=== PATIENT | male | born 1985 | race Caucasian/White ===

== ENCOUNTER 2017-05-29 14:10 | Emergency (ER) | payer MEDICAID ==
[~2017-05-29] VITALS: Ht 177.8 cm; Wt 65.8 kg
--- NOTE | 2017-05-29 14:10 | NUR ---
BIBRA FROM HOME FOR POSSIBLE ALCOHOL WIDTHRAWAL, LAST ALCOHOL WAS 12HRS AGO. PT APPEARS ANXIOUS. APPEARS IN NO APPARENT DISTRESS WITH VSS
[2017-05-29] MEDS ORDERED: LORAZEPAM INJ 2 MG/ML VIAL IVP ONE (14:30)
[2017-05-29] MEDS ORDERED: ONDANSETRON HCL/PF 4 MG/2 ML VIAL IVP ONE (14:30)
[2017-05-29] MEDS ORDERED: MISCELLANEOUS MED 1 EA EA XX ONE (14:30)
[2017-05-29] MEDS ORDERED: PYRIDOXINE HCL INJ 100 MG/ML VIAL IV ONE (14:30)
[2017-05-29] MEDS ORDERED: Thiamine 100 MG in IV D5W 50 ML IV SCH (14:30)
[2017-05-29] MEDS ORDERED: IV NS 0.9% 1,000 ML BAG IV ONE (14:30)
[2017-05-29] MEDS ORDERED: CYANOCOBALAMIN 1,000 MCG/ML VIAL IM ONE (14:30)
[2017-05-29 14:38] LABS: BASOPHILS # (AUTO) 0.3 /CMM (0.0-0.2); EOSINOPHILS % (AUTO) 0.1 % (0.0-6.0); HEMATOCRIT 48 % (39-51); HEMOGLOBIN 16.2 g/dL (13.5-17.5); LYMPHOCYTES # (AUTO) 2.5 /CMM (0.8-4.8); LYMPHOCYTES % (AUTO) 16.9 % (20.0-44.0); MEAN CORPUSCULAR HEMOGLOBIN 32 PG (26.0-33.0); MEAN CORPUSCULAR HGB CONC 34 g/dl (31.0-36.0); MEAN CORPUSCULAR VOLUME 96 fL (80-96); NEUTROPHILS # (AUTO) 11.2 /CMM (1.8-8.9); PLATELET COUNT (AUTO) 361 /CMM (150-450); RDW COEFFICIENT OF VARIATION 13.8 (11.5-15.0); RED BLOOD CELL COUNT(AUTO) 5.05 MIL/uL (4.5-6.0)
[2017-05-29] MEDS ORDERED: ONDANSETRON HCL/PF 4 MG/2 ML VIAL ONE (14:45)
[2017-05-29] MEDS ORDERED: LORAZEPAM INJ 2 MG/ML VIAL ONE (14:45)
[2017-05-29 14:47] LABS: CREATININE 1.1 mg/dL (0.6-1.3); POTASSIUM 3.2 mmol/L (3.5-5.1)
[2017-05-29 14:53] LABS: ALBUMIN 4.5 g/dL (3.4-5.0); BILIRUBIN,DIRECT 0.2 mg/dL (0.0-0.2); BILIRUBIN,TOTAL 0.7 mg/dL (0.2-1.0); SALICYLATE 4.8 mg/dL (2.8-20.0); TOTAL PROTEIN, SERUM 8.7 g/dL (6.4-8.2)
--- NOTE | 2017-05-29 15:28 | NUR ---
CALLED PHARMACY FOR ANCEF
[2017-05-29] MEDS ORDERED: CEFAZOLIN 1 GM in IV D5W 50 ML IV ONE (15:30)
[2017-05-29 16:43] LABS: APPEARANCE,URINE CLEAR (CLEAR); BILIRUBIN,URINE NEGATIVE (NEGATIVE); BLOOD, URINE NEGATIVE Ery/uL (NEGATIVE); COLOR,URINE YELLOW (YELLOW); KETONES,URINE 1+ (NEGATIVE); LEUKOCYTE ESTERASE ,URINE NEGATIVE (NEGATIVE); NITRITE, URINE NEGATIVE (NEGATIVE); PROTEIN,URINE TRACE mg/dl (NEGATIVE); UGLUCOSE NEGATIVE (NEGATIVE); UROBILINOGEN,URINE 0.2 EU/dL (0.2)
[2017-05-29 17:11] LABS: BACTERIA,URINE None seen /HPF (None Seen); RBC,URINE 0-2 /HPF (0-2); SQUAMOUS EPITHELIAL CELL,UR Rare /HPF (None Seen); WBC,URINE 0-2 /HPF (0-3)
[2017-05-29] MEDS ORDERED: LORAZEPAM INJ 2 MG/ML VIAL IV PRN (19:00)
--- NOTE | 2017-05-29 19:21 | NUR ---
Patient is resting comfortably in bed with eyes closed. Easily aroused. VSS
[2017-05-29 20:42] VITALS: BP 122/82
== END 2017-05-29 20:45 | disposition home or self-care (01) ==
LOC: ER 14:12
DX: S62.337A Displaced fracture of neck of fifth metacarpal bone, left hand, initial encounter for closed fracture (principal); F10.239 Alcohol dependence with withdrawal, unspecified; X58.XXXA Exposure to other specified factors, initial encounter; Y93.89 Activity, other specified; Y92.89 Other specified places as the place of occurrence of the external cause; Y99.8 Other external cause status
CPT/HCPCS: 29125; 36415; 73130; 80048; 80076; 80305; 80329; 81001; 85025; 93005; 96361; 96365; 96375; 99285; A4606; G0480 ×2; J0690; J2060; J2405; J3411; J3420; J7060 ×2; Z7610; 81000-TC

== ENCOUNTER 2018-05-26 21:43 | Emergency (ER) | payer MEDICAID ==
[~2018-05-26] VITALS: Ht 177.8 cm; Wt 76.7 kg
--- NOTE | 2018-05-26 22:40 | NUR ---
Pt came in for OD. He is asleep but arousable, unable to provide information at this time. Urinal offered for urine collection. Unable to void at this time.
[2018-05-26 22:45] LABS: BASOPHILS % (AUTO) 0.7 % (0.0-2.0); EOSINOPHILS % (AUTO) 2.2 % (0.0-6.0); HEMATOCRIT 53 % (39-51); HEMOGLOBIN 17.5 g/dL (13.5-17.5); LYMPHOCYTES # (AUTO) 1.7 /CMM (0.8-4.8); LYMPHOCYTES % (AUTO) 30.9 % (20.0-44.0); MEAN CORPUSCULAR HGB CONC 33 g/dl (31.0-36.0); MEAN CORPUSCULAR VOLUME 93 fL (80-96); MONOCYTES # (AUTO) 0.8 /CMM (0.1-1.30); MONOCYTES % (AUTO) 14.8 % (2.0-12.0); NEUTROPHILS # (AUTO) 2.8 /CMM (1.8-8.9); NEUTROPHILS % (AUTO) 51.4 % (43.0-81.0); PLATELET COUNT (AUTO) 182 /CMM (150-450); RED BLOOD CELL COUNT(AUTO) 5.68 MIL/uL (4.5-6.0); WHITE BLOOD COUNT (AUTO) 5.5 K/uL (4.3-11.0)
[2018-05-26 22:54] LABS: CALCIUM, SERUM 8.3 mg/dL (8.5-10.1); CREATININE 0.7 mg/dL (0.6-1.3); POTASSIUM 3.8 mmol/L (3.5-5.1)
[2018-05-26 22:59] LABS: ALBUMIN 3.2 g/dL (3.4-5.0); BILIRUBIN,DIRECT 0.1 mg/dL (0.0-0.2); BILIRUBIN,TOTAL 0.1 mg/dL (0.2-1.0); SALICYLATE 3.2 mg/dL (2.8-20.0); TOTAL PROTEIN, SERUM 7.4 g/dL (6.4-8.2)
--- NOTE | 2018-05-26 23:00 | NUR ---
Francisco J bennett in EDM - 05/26/18 at 2312 by ROMINA Pt managged to void without difficulty through the urinal. Urine sample collected and sent to lab.
--- NOTE | 2018-05-26 23:00 | NUR ---
Pt voided without difficulty through the urinal. Urine sample collected and sent to lab.
--- NOTE | 2018-05-26 23:30 | NUR ---
Called lab 2x to collect urine sample.
[2018-05-26 23:51] LABS: APPEARANCE,URINE CLEAR (CLEAR); BILIRUBIN,URINE NEGATIVE (NEGATIVE); BLOOD, URINE NEGATIVE Ery/uL (NEGATIVE); COLOR,URINE YELLOW (YELLOW); KETONES,URINE NEGATIVE (NEGATIVE); LEUKOCYTE ESTERASE ,URINE NEGATIVE (NEGATIVE); NITRITE, URINE NEGATIVE (NEGATIVE); PROTEIN,URINE NEGATIVE (NEGATIVE); UGLUCOSE NEGATIVE (NEGATIVE); UROBILINOGEN,URINE 0.2 EU/dL (0.2)
--- NOTE | 2018-05-27 01:00 | NUR ---
Pt still lethargic but arousable. VSS.
--- NOTE | 2018-05-27 02:30 | NUR ---
Pt resting, requested for and received a cup of water. Able to swallow without difficulty. No distress noted.
--- NOTE | 2018-05-27 04:20 | NUR ---
Pt still asleep but easier to arouse at this time.
[2018-05-27 04:57] VITALS: BP 123/87
--- NOTE | 2018-05-27 04:58 | NUR ---
Patient discharged to home in stable condition. Written and verbal after care instructions given. Patient verbalizes understanding of instruction.IV removed. Catheter intact and site benign. Pressure and 4x4 applied to site. No bleeding noted. Pt. ambulatory with a steady gait
== END 2018-05-27 04:59 | disposition home or self-care (01) ==
LOC: ER 21:51
DX: F19.10 Other psychoactive substance abuse, uncomplicated (principal); F10.20 Alcohol dependence, uncomplicated; F12.10 Cannabis abuse, uncomplicated; I51.7 Cardiomegaly; Y90.8 Blood alcohol level of 240 mg/100 ml or more; Z60.2 Problems related to living alone
CPT/HCPCS: 36415; 80048; 80076; 80305; 80329; 81001; 82962; 85025; 93005; 99284; A4606; G0480 ×2; Z7610; 81000-TC